=== PATIENT | female | born 1995 | race African-American/Black ===

== ENCOUNTER 2020-07-14 18:18 | Emergency (ER) | payer SELFPAY ==
[~2020-07-14] VITALS: Ht 160 cm; Wt 53.5 kg
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
--- NOTE | 2020-07-14 18:25 | NUR ---
RADHA DE LA FUENTE AT BEDSIDE
[2020-07-14] MEDS ORDERED: MORPHINE SULFATE INJ 4 MG/ML DISP.SYRIN ONE (18:34)
[2020-07-14] MEDS ORDERED: ONDANSETRON HCL/PF 4 MG/2 ML VIAL ONE (18:34)
[2020-07-14] MEDS: MORPHINE SULFATE INJ 2 MG/ML DISP.SYRIN IV ONE (18:43)
[2020-07-14] MEDS: ONDANSETRON HCL/PF 4 MG/2 ML VIAL IV ONE (18:43)
[2020-07-14] MEDS ORDERED: HYDROMORPHONE 1 MG/1 ML DISP.SYRIN ONE (18:51)
[2020-07-14] MEDS: HYDROMORPHONE 1 MG/1 ML DISP.SYRIN IV ONE (18:54)
--- NOTE | 2020-07-14 19:09 | NUR ---
Called Shelby Diez MD [phone]
[2020-07-14] MEDS ORDERED: PROPOFOL 20 ML IV ONE (19:11)
--- NOTE | 2020-07-14 19:17 | NUR ---
CALLED ESTHER RECINOS ITS [employer] [phone]
--- NOTE | 2020-07-14 19:21 | NUR ---
DR TERRY AT BEDSIDE , EXPLAINED THE RISK AND BENEFITS OF THE PROCEDURE , PT VERBALIZED UNDERSTANDING , AGREED TO PROCEDE WITH THE PROCEDURE , AGREED AND SIGNED TO BOTH PROCEDURE AND ANESTHESIA .
[2020-07-14] MEDS: PROPOFOL 200 MG/20 ML VIAL IV ONE (19:28)
--- NOTE | 2020-07-14 19:33 | NUR ---
RADIOLOGY AT BEDSIDE
--- NOTE | 2020-07-14 19:33 | NUR ---
RT rt called for moderate sedation standby. pt saturation 100% on room air. a&ox4 pre procedure. ambu bag on standby during procedure. during procedure pt maintained saturation of 100%. post procedure saturation was 100%. pt left awake and alert. a&ox4.
--- NOTE | 2020-07-14 20:06 | NUR ---
UPDATED THE BOYFRIEND ON PLAN OF CARE. PT AWARE.
[2020-07-14 20:23] VITALS: BP 138/86
--- NOTE | 2020-07-14 20:23 | NUR ---
IV removed. Catheter intact and site benign. Pressure and 4x4 applied to site. No bleeding noted.
--- NOTE | 2020-07-14 20:23 | NUR ---
PT PROVIDED [facility] XRAYS AND CD.
--- NOTE | 2020-07-14 20:23 | NUR ---
Patient discharged to home in stable condition. Written and verbal after care instructions given. Patient verbalizes understanding of instruction and RX. Pt picked up by boyfriend.
== END 2020-07-14 20:42 | disposition home or self-care (01) ==
LOC: ER 18:23
DX: S52.591A Other fractures of lower end of right radius, initial encounter for closed fracture (principal); V49.49XA Driver injured in collision with other motor vehicles in traffic accident, initial encounter; Y93.89 Activity, other specified; Y92.488 Other paved roadways as the place of occurrence of the external cause; Y99.8 Other external cause status
CPT/HCPCS: 25605; 73090; 73100; 73110; 96374; 96375; 99152; 99285; J1170; J2270; J2405; J2704; G0500

== ENCOUNTER 2020-07-15 14:27 | Emergency (ER) | payer SELFPAY ==
[~2020-07-15] VITALS: Ht 160 cm; Wt 53.5 kg
[2020-07-15 14:34] VITALS: BP 131/79
--- NOTE | 2020-07-15 14:54 | NUR ---
AT BEDSIDE FOR EVAL.
--- NOTE | 2020-07-15 15:12 | NUR ---
IAIN WHITTAKER AT BEDSIDE FOR RE WRAPPING OF THE SPLINT.
--- NOTE | 2020-07-15 15:31 | NUR ---
called Rosa Maria briones to request ortho consult. left voice message. awaiting call back.
--- NOTE | 2020-07-15 15:44 | NUR ---
dr painting paged. awaiting call back.
--- NOTE | 2020-07-15 15:52 | NUR ---
CALLED MARTITA RECINOS [phone] KEE [phone]
--- NOTE | 2020-07-15 16:59 | NUR ---
Patient discharged to home in stable condition. Written and verbal after care instructions given. Patient verbalizes understanding of instruction.
== END 2020-07-15 16:59 | disposition home or self-care (01) ==
LOC: ER 14:30
DX: S52.591A Other fractures of lower end of right radius, initial encounter for closed fracture (principal); S60.811A Abrasion of right wrist, initial encounter; Z88.0 Allergy status to penicillin; Z47.89 Encounter for other orthopedic aftercare; X58.XXXA Exposure to other specified factors, initial encounter; Y93.89 Activity, other specified; Y92.89 Other specified places as the place of occurrence of the external cause; Y99.8 Other external cause status
CPT/HCPCS: 29125; 99283; J7030

== ENCOUNTER 2020-07-26 11:23 | Outpatient (CLI) | payer OTHER, MEDICAID | END 2020-07-26 23:59 | disposition home or self-care (01) | LOC: LAB 11:23 | PROVIDERS: ATTEND Specialist | DX: Z01.812 Encounter for preprocedural laboratory examination (principal); Z20.828 Contact with and (suspected) exposure to other viral communicable diseases | CPT/HCPCS: 87426; C9803; U0003 ==

== ENCOUNTER 2020-07-28 05:56 | Day surgery (SDC) | payer MEDICAID, OTHER ==
[2020-07-28] MEDS ORDERED: BACITRACIN 50000 UNITS/VIAL ONE (06:38)
[2020-07-28] MEDS ORDERED: BUPIVACAINE 0.25% 75 MG/30 ML VIAL ONE (06:38)
[2020-07-28] MEDS ORDERED: HYDROMORPHONE INJ 2 MG/ML DISP.SYRIN ONE (06:50)
[2020-07-28] MEDS ORDERED: MIDAZOLAM HCL 2 MG/2ML VIAL ONE (06:50)
[2020-07-28] MEDS ORDERED: HYDROMORPHONE 1 MG/1 ML DISP.SYRIN ONE (08:28)
[2020-07-28] MEDS ORDERED: HYDROCODONE/APAP 5/325MG TABLET ONE (09:09)
== END 2020-07-28 10:10 | disposition home or self-care (01) ==
LOC: DS 05:56
PROVIDERS: ATTEND Specialist
DX: S52.501A Unspecified fracture of the lower end of right radius, initial encounter for closed fracture (principal); X58.XXXA Exposure to other specified factors, initial encounter; Y93.89 Activity, other specified; Y92.89 Other specified places as the place of occurrence of the external cause; Y99.8 Other external cause status
CPT/HCPCS: 25607; 84703; A4217; A4565; A6253; A6402; C1713 ×7; J0690; J1100; J1170 ×2; J1885; J2250; J2405; J2704; J3490 ×2